=== PATIENT | female | born 1935 | race Two or more races ===

== ENCOUNTER 2017-04-06 12:31 | Outpatient (CLI) | payer BC, MEDICARE ==
[2017-04-06 12:41] VITALS: BP 152/72
== END 2017-04-06 23:59 | disposition home or self-care (01) ==
LOC: MSC 12:31
PROVIDERS: ATTEND Internal Medicine
DX: Z47.89 Encounter for other orthopedic aftercare (principal); S42.301D Unspecified fracture of shaft of humerus, right arm, subsequent encounter for fracture with routine healing; D64.9 Anemia, unspecified; M19.011 Primary osteoarthritis, right shoulder; W19.XXXD Unspecified fall, subsequent encounter